=== PATIENT | female | born 1945 | race Caucasian/White ===

== ENCOUNTER 2022-03-28 12:44 | Outpatient (CLI) | payer MEDICARE, BC, SELFPAY ==
--- NOTE | 2022-03-28 13:00 | MR_ITS ---
[facility] [address] [facility] [id number] Phone:?[phone] Fax:?[phone] Referring Physician Information: Addison Encarnacion M.D. [address] [facility] [address] Phone:?[phone] Fax:?[phone] Patient:?Jessica Jenkins D.O.B:?1945 Sex:?Female Phone:?[phone] [facility] MRN:?[id number] Exam Date:?03/28/2022 ? EXAM: MR LUMBAR SPINE WITHOUT CONTRAST CLINICAL INFORMATION: Low back pain. Status post L4-5 fusion. COMPARISON:?MRI lumbar spine 03/11/2018. TECHNICAL INFORMATION: T1 and T2 FSE and STIR sagittal thin sections through the lumbar spine with T1 and T2 FSE axial sections at selected levels. INTERPRETATION: 5 lumbar levels in hyperlordotic alignment. Conus medullaris terminates at L1 and has normal signal. No evidence of arachnoid disease or abnormal neural development. Vertebral body heights are maintained. Paraspinal soft tissues appear normal. L5-S1: Status post laminectomy. Moderate disc degeneration with mild degenerative endplate inflammation, dorsal disc bulge, moderate right/mild left facet degeneration. No central stenosis. Mild left foraminal stenosis. L4-5: Indeterminate for posterior osseous fusion on MRI. Status post laminectomy. Moderate disc degeneration and mild grade 1 spondylolisthesis. No central stenosis. Mild left foraminal stenosis. L3-4: Status post laminectomy. Advanced disc degeneration with degenerative endplate inflammation, 3 mm degenerative spondylolisthesis, hardware associated artifact partially obscures the facet joints. No central stenosis. Moderate to severe right up-down foraminal stenosis with right L3 impingement, mild to moderate left foraminal stenosis. L2-3: Mild to moderate disc degeneration and trace retrolisthesis, dorsal disc bulge and endplate ridging, moderate right and mild left facet degeneration. No central stenosis. Mild right foraminal stenosis. L1-2: Moderate disc degeneration, prominent dorsal disc bulge, normal facet joints. Mild to moderate central stenosis. No foraminal stenosis. T11-12, T12-L1: No central or foraminal stenosis. Compared to 03/11/2018 there has been progression of disc degeneration most notably at L3-4 with new degenerative endplate inflammation. Increased L3-4 foraminal stenosis. CONCLUSION: Status post L4-5 instrumentation with multilevel decompressions and the following findings: 1. L3-4 advanced disc degeneration and degenerative endplate inflammation, right foraminal L3 impingement. 2. Upper lumbar disc bulging and L1-2 mild to moderate central stenosis. 3. L2-3 and L5-S1 right greater than left facet degeneration, limited visualization of the L3-4 facet joints. 4. No residual stenosis at L4-5. Electronically signed on 03/29/2022 1:35:00 PM by Justin Breen M.D.
--- NOTE | 2022-04-11 08:20 | ED_ITS ---
ED Chart Note Chart Note Details Date: 04/11/22 Details: I spoke to the patient informed her of her results of her lumbar MRI which I did situation of her spine clinic visit. She has tightness right greater than left at L3-L4, the remainder of examination shows the previous laminectomy, her pain is mostly left-sided but she does have a right-sided component mostly when she sleeps at night I explained to her that it looks like the right side is more tight than the left, and she would like to try an FAVIOLA, given this fact I think we will try interlaminar left-sided L3-L4 injection at the hospital, Dr. Veliz. I have asked her to continue physical therapy and continue to of with her appointment to follow-up with [facility]. She was very comfortable this plan
== END 2022-03-28 12:45 | disposition home or self-care (01) ==
LOC: MRI 12:48
PROVIDERS: PCP Internal Medicine Rheumatology; Visit Provider Family Medicine
DX: M54.50 Low back pain, unspecified (principal); M51.36 Other intervertebral disc degeneration, lumbar region; M48.061 Spinal stenosis, lumbar region without neurogenic claudication
CPT/HCPCS: 72148

== ENCOUNTER 2022-05-09 09:35 | Outpatient (CLI) | payer MEDICARE, BC, SELFPAY | END 2022-05-09 09:36 | disposition home or self-care (01) | LOC: INJ CL 09:37 | PROVIDERS: PCP Physician Assistant Medical; Visit Provider Family Medicine | DX: M54.16 Radiculopathy, lumbar region (principal) | CPT/HCPCS: 64483; J1100; Q9966 ==

== ENCOUNTER 2023-06-05 09:17 | Outpatient (CLI) | payer MEDICARE, BC, SELFPAY | END 2023-06-05 09:18 | disposition home or self-care (01) | PROVIDERS: PCP Physician Assistant Medical; Visit Provider Family Medicine | DX: M54.16 Radiculopathy, lumbar region (principal); M51.36 Other intervertebral disc degeneration, lumbar region | CPT/HCPCS: 64483; J1100; Q9966 ==